=== PATIENT | female | born 1980 | race Caucasian/White ===

== ENCOUNTER 2017-02-02 13:03 | Emergency (ER) | payer SELFPAY ==
[2017-02-02 13:16] VITALS: BP 150/91
--- NOTE | 2017-02-02 13:50 | ER Document Report ---
ED Medical Screen (RME) - General Stated Complaint: LEFT EYE AND FACIAL SWELLING Notes: Patient states left-sided facial swelling 2 days. Patient has had ear drainage , nasal congestion. States she feels like the left side of her face is numb. He states temperature of about 100. I have greeted and performed a rapid initial assessment of this patient. A comprehensive ED assessment and evaluation of the patient, analysis of test results and completion of the medical decision making process will be conducted by additional ED providers. TRAVEL OUTSIDE OF THE [place] IN LAST 30 DAYS: No - Related Data Allergies/Adverse Reactions: No Known Allergies Allergy (Verified 06/27/16 01:11) Past Medical History - Immunizations Immunizations up to date: No Hx Diphtheria, Pertussis, Tetanus Vaccination: Yes Physical Exam - Vital signs Vitals: Temp Pulse Resp BP Pulse Ox 97.7 F 83 18 150/91 H 96 02/02/17 13:14 02/02/17 13:14 02/02/17 13:14 02/02/17 13:14 02/02/17 13:14 - HEENT Notes: Tenderness to left maxillary sinus. Course - Vital Signs Vital signs: Temp Pulse Resp BP Pulse Ox 97.7 F 83 18 150/91 H 96 02/02/17 13:14 02/02/17 13:14 02/02/17 13:14 02/02/17 13:14 02/02/17 13:14
--- NOTE | 2017-02-02 15:52 | ER Document Report ---
ED General - General Chief Complaint: Congestion Stated Complaint: LEFT EYE AND FACIAL SWELLING Mode of Arrival: Ambulatory Information source: Patient Notes: This is a 36-year-old female who presents with 3 day history of left ear pain. She also states that her left eye has been irritated and she had some left periorbital swelling earlier. She's had nasal and sinus congestion but no fevers or chills. No cough. She has been tolerating food and drink with no problems. TRAVEL OUTSIDE OF THE [place] IN LAST 30 DAYS: No - Related Data Allergies/Adverse Reactions: No Known Allergies Allergy (Verified 02/02/17 13:49) Past Medical History - General Information source: Patient - Social History Smoking Status: Current Some Day Smoker Chew tobacco use (# tins/day): No Frequency of alcohol use: None Drug Abuse: None Family History: Reviewed & Not Pertinent Renal/ Medical History: Denies: Hx Peritoneal Dialysis GI Medical History: Reports: Hx Gastroesophageal Reflux Disease - Immunizations Immunizations up to date: No Hx Diphtheria, Pertussis, Tetanus Vaccination: Yes Review of Systems - Review of Systems Constitutional: denies: Chills, Fever EENT: See HPI, Tearing, Ear pain, Nose congestion, Sinus pressure. denies: Eye pain, Eye discharge, Blurred vision, Difficulty swallowing Cardiovascular: No symptoms reported. denies: Chest pain Respiratory: No symptoms reported. denies: Cough, Hurts to breathe Gastrointestinal: No symptoms reported Genitourinary: No symptoms reported Female Genitourinary: No symptoms reported Musculoskeletal: No symptoms reported Skin: No symptoms reported Hematologic/Lymphatic: No symptoms reported Neurological/Psychological: No symptoms reported Physical Exam - Vital signs Vitals: Temp Pulse Resp BP Pulse Ox 97.7 F 83 18 150/91 H 96 02/02/17 13:14 02/02/17 13:14 02/02/17 13:14 02/02/17 13:14 02/02/17 13:14 - Notes Notes: PHYSICAL EXAMINATION: GENERAL: Well-appearing, obese adult female pleasant and conversant and in no acute distress. HEAD: Atraumatic, normocephalic. EYES: Pupils equal round and reactive to light, extraocular movements intact without pain., sclera anicteric. Left eye with injected conjunctiva. No periorbital edema noted. ENT: nares patent, oropharynx clear without exudates. Moist mucous membranes. Left TM bulging and erythematous. Right TM clear. No facial sinus tenderness to palpation. NECK: Normal range of motion, supple without lymphadenopathy LUNGS: Breath sounds clear to auscultation bilaterally and equal. No wheezes rales or rhonchi. HEART: Regular rate and rhythm without murmurs ABDOMEN: Soft, obese, nontender, normoactive bowel sounds. No guarding, no rebound. No masses appreciated. EXTREMITIES: Normal range of motion, no edema NEUROLOGICAL: Cranial nerves grossly intact. Normal speech, normal gait. No gross focal motor or sensory deficits appreciated. PSYCH: Normal mood, normal affect. SKIN: Warm, Dry, normal turgor, no rashes or lesions noted. Course - Vital Signs Vital signs: Temp Pulse Resp BP Pulse Ox 97.7 F 83 18 150/91 H 96 02/02/17 13:14 02/02/17 13:14 02/02/17 13:14 02/02/17 13:14 02/02/17 13:14 Discharge - Discharge Clinical Impression: Left conjunctivitis Qualifiers: Conjunctivitis type: unspecified Qualified Code(s): H10.9 - Unspecified conjunctivitis Left otitis media Qualifiers: Otitis media type: unspecified Chronicity: unspecified Qualified Code(s): H66.92 - Otitis media, unspecified, left ear Allergic rhinitis Qualifiers: Allergic rhinitis trigger: unspecified Allergic rhinitis seasonality: unspecified seasonality Qualified Code(s): J30.9 - Allergic rhinitis, unspecified Condition: Stable Disposition: HOME, SELF-CARE Additional Instructions: OTITIS MEDIA: You have a middle ear infection (otitis media). This is usually a complication of a cold or sore throat. The middle ear cavity becomes filled with infection. Pressure and stretching of the ear drum cause pain. Antibiotics are required. A 10 day course is usually prescribed. A decongestant may be recommended if you have a "runny nose." You may need anesthetic drops or other pain medication. A follow-up exam may be recommended to make sure the infection has completely cleared. If the ear begins to drain, it means the ear drum has ruptured. This will usually heal spontaneously. However, it means you should keep the ear dry until re-examined by a doctor. Call the physician or return for examination at once if there is severe headache, stiff neck, confusion, increasing fever, or dizziness. You should improve significantly within two days. If you're not better, call the doctor. Conjunctivitis You have an infection in your eye, commonly known as "pink eye." Conjunctivitis causes redness, mild discomfort, itching, and mattering on the eyelids. It is very contagious, so you must be careful to wash your hands after touching your face so you don't pass the infection on to others. Conjunctivitis is caused by both viruses and bacteria. It usually responds quickly to treatment with antibiotic drops. These should be placed in the eye as prescribed (usually every three to four hours while you're awake). If you wear contact lenses, don't put them in your eyes until the infection is cleared and you are no longer using the drops (unless your doctor advises you otherwise). Should you develop increasing eye pain, severe swelling, decreased vision, or fail to improve as expected, please return for re-examination. AMOXICILLIN: Amoxicillin is a member of the penicillin family. It covers the germs likely to cause ear, bronchial, and urinary infections better than plain penicillin. Amoxicillin can be taken without regard to meals. Nausea after taking the medication is rare, but can occur. Diarrhea can occur, particularly in small children. Vaginal yeast infections and oral thrush in infants are also common. Contact your physician if these problems occur. Allergy to penicillins is common. If you have had an allergic reaction to any drug of the penicillin family, you should never take any other penicillin. Notify your doctor at once if you develop hives, itching, swelling, faintness, or shortness of breath. Less serious side effects can include nausea or diarrhea. FOLLOW-UP CARE: If you have been referred to a physician for follow-up care, call the physician s office for an appointment as you were instructed or within the next two days. If you experience worsening or a significant change in your symptoms, notify the physician immediately or return to the Emergency Department at any time for re-evaluation. Prescriptions: Amoxicillin 1 tab PO TID #30 tab Erythromycin Base [Erythromycin] 3.5 gm OP TID #1 oint..gm. Fluticasone Propionate [Flonase Allergy Relief] 9.9 ml NS DAILY #1 spray.susp Forms: Smoking Cessation Education
== END 2017-02-02 16:45 | disposition home or self-care (01) ==
LOC: ER 13:03
DX: H10.9 Unspecified conjunctivitis (principal); H66.92 Otitis media, unspecified, left ear; J30.9 Allergic rhinitis, unspecified; R09.81 Nasal congestion; R22.0 Localized swelling, mass and lump, head; H92.02 Otalgia, left ear; F17.200 Nicotine dependence, unspecified, uncomplicated
CPT/HCPCS: 99283

== ENCOUNTER 2017-05-31 19:19 | Emergency (ER) | payer SELFPAY ==
[2017-05-31] MEDS ORDERED: MUPIROCIN 2% OINTMENT 22 GM TP ONE (20:12)
--- NOTE | 2017-05-31 20:15 | ER Document Report ---
HPI - HPI Patient complains to provider of: insect bite Onset: Other - 3 days Onset/Duration: Gradual Quality of pain: No pain Pain Level: Denies Context: Patient complains of pruritic insect bite to the anterior chest area that started 3 days ago. Patient states 2 days ago she was able to pull out a plug of tissue and drainage from the area. Patient states that since then skin has continued to be pruritic. Patient is concerned about possible spider bite. Associated Symptoms: Other - insect bite Exacerbated by: Denies Relieved by: Denies Similar symptoms previously: No Recently seen / treated by doctor: No - ROS ROS below otherwise negative: Yes Systems Reviewed and Negative: Yes All other systems reviewed and negative - CONSTITUTIONAL Constitutional: DENIES: Fever, Chills - RESPIRATORY Respiratory: DENIES: Coughing - GASTROINTESTINAL Gastrointestinal: DENIES: Nausea - REPRODUCTIVE Reproductive: DENIES: : - DERM Skin Color: Normal Notes: insect bite Past Medical History - General Information source: Patient - Social History Smoking Status: Current Every Day Smoker Occupation: general office dispatcher Lives with: Family Family History: Reviewed & Not Pertinent Patient has suicidal ideation: No Patient has homicidal ideation: No Renal/ Medical History: Denies: Hx Peritoneal Dialysis GI Medical History: Reports: Hx Gastroesophageal Reflux Disease, Hx Ulcer Surgical Hx: Negative - Immunizations Immunizations up to date: No Hx Diphtheria, Pertussis, Tetanus Vaccination: Yes Vertical Provider Document - CONSTITUTIONAL Agree With Documented VS: Yes Exam Limitations: No Limitations - INFECTION CONTROL TRAVEL OUTSIDE OF THE [place] IN LAST 30 DAYS: No - HEENT HEENT: Atraumatic, Normocephalic - NECK Neck: Normal Inspection - RESPIRATORY Respiratory: No Respiratory Distress - CARDIOVASCULAR Pulses: Normal: Radial - MUSCULOSKELETAL/EXTREMETIES Musculoskeletal/Extremeties: MAEW - NEURO Level of Consciousness: Awake, Alert, Appropriate Motor/Sensory: No Motor Deficit - DERM Integumentary: Warm, Dry. negative: Abscess Notes: Shallow ulceration to anterior chest area with small area of erythema surrounding this. No concern for abscess Discharge - Discharge Clinical Impression: Insect bite Qualifiers: Encounter type: initial encounter Qualified Code(s): W57.XXXA - Bitten or stung by nonvenomous insect and other nonvenomous arthropods, initial encounter Condition: Stable Disposition: HOME, SELF-CARE Instructions: Insect Bites ([facility]), Bactroban Ointment ([facility]), Use of Diphenhydramine Additional Instructions: Return immediately for any new or worsening symptoms Followup with your primary care provider, call tomorrow to make a followup appointment Avoid scratching at skin Prescriptions: Mupirocin [Bactroban 2% Ointment 22 gm] 1 applic TP TID #22 gm Referrals: [facility] [Provider Group] - Follow up as needed
[2017-05-31 20:20] VITALS: BP 136/97
== END 2017-05-31 20:30 | disposition home or self-care (01) ==
LOC: ER 19:19
DX: S20.369A Insect bite (nonvenomous) of unspecified front wall of thorax, initial encounter (principal); W57.XXXA Bitten or stung by nonvenomous insect and other nonvenomous arthropods, initial encounter; F17.200 Nicotine dependence, unspecified, uncomplicated
CPT/HCPCS: 99281; J3490